=== PATIENT | male | born 1960 | race Two or more races ===

== ENCOUNTER 2025-01-01 16:29 | Inpatient (IN) | payer OTHER ==
[~2025-01-01] VITALS: Ht 172.7 cm; Wt 95.3 kg
[2025-01-01 17:13] LABS: BASOPHILS % (AUTO) 0.1 % (0.0-2.0); EOSINOPHILS # (AUTO) 1.7 K/uL (0.0-0.7); EOSINOPHILS % (AUTO) 10.7 % (0.0-7.0); HEMATOCRIT 28.1 % (36.7-47.1); HEMOGLOBIN 9.2 g/dL (12.5-16.3); LYMPHOCYTES # (AUTO) 3.3 K/uL (0.8-4.8); LYMPHOCYTES % (AUTO) 20.4 % (20.5-51.5); MEAN CORPUSCULAR HGB CONC 33 g/dL (32.5-36.3); MEAN CORPUSCULAR VOLUME 76.4 fL (73.0-96.2); MONOCYTES % (AUTO) 5.9 % (0.0-11.0); NEUTROPHILS # (AUTO) 10.3 K/uL (1.8-8.9); NEUTROPHILS % (AUTO) 62.9 % (38.5-71.5); PLATELET COUNT (AUTO) 722 K/uL (152-348); RED BLOOD CELL COUNT(AUTO) 3.68 MIL/uL (4.06-5.63); RED CELL DISTRIBUTION WIDTH 15.7 % (12.1-16.2); WHITE BLOOD COUNT (AUTO) 16.4 K/uL (3.6-10.2)
[2025-01-01 17:21] LABS: DIFFERENTIAL COMMENT 1
[2025-01-01 17:28] LABS: CALCIUM 8.2 mg/dL (8.5-10.1); CARBON DIOXIDE 25 mmol/L (21-32); CHLORIDE 100 mmol/L (98-107); CREATININE 1.2 mg/dL (0.6-1.3); GLUCOSE 315 mg/dL (74-106); SODIUM SERUM 134 mmol/L (136-145); UREA NITROGEN, BLOOD 40 mg/dL (7-18)
[2025-01-01] MEDS ORDERED: HYDR-3972 PO (17:32)
[2025-01-01] MEDS ORDERED: INSU100V39 SQ (17:32)
[2025-01-01] MEDS ORDERED: ATOR20TA PO (17:32)
[2025-01-01] MEDS ORDERED: ASCO500C18 PO (17:32)
[2025-01-01] MEDS ORDERED: ZINC220T4 PO (17:32)
[2025-01-01] MEDS ORDERED: INSU100I26 SQ (17:32)
[2025-01-01] MEDS ORDERED: MULT-225 PO (17:32)
[2025-01-01] MEDS ORDERED: TRIA15OI9 TP (17:32)
[2025-01-01] MEDS ORDERED: OMEP20CA15 PO (17:32)
[2025-01-01] MEDS ORDERED: DIPH25TA62 PO (17:32)
[2025-01-01 17:33] LABS: ALANINE AMINOTRANSFERASE 13 U/L (16-63); ALKALINE PHOSPHATASE 126 U/L (50-136); ASPARTATE AMINOTRANSFERASE 11 U/L (15-37); BILIRUBIN,DIRECT < 0.1 mg/dL (0.0-0.2); BILIRUBIN,TOTAL 0.1 mg/dL (0.2-1.0)
[2025-01-01] MEDS ORDERED: CEFTRIAXONE /D5W 50ML IVPB **ER PYXIS IV ONE (18:05)
[2025-01-01] MEDS ORDERED: VANCOMYCIN IV 200 ML ONE (18:05)
[2025-01-01] MEDS: IV NS 1000 ML 1,000 ML IV PRN (18:08)
[2025-01-01] MEDS: CEFTRIAXONE 1 G in IV DEXTROSE 5% 50 ML IV ONE (18:09)
[2025-01-01 18:12] LABS: NT-PRO BNP 155 pg/mL (0-125)
[2025-01-01] MEDS: VANCOMYCIN IV 1,000 MG in IV DEXTROSE 5% 250 ML IV ONE (18:47)
[2025-01-01] MEDS ORDERED: ONDANSETRON 4 MG/2 ML VIAL ONE (21:16)
[2025-01-01] MEDS ORDERED: MORPHINE SULFATE 2 MG/1 ML DISP.SYRIN ONE (21:16)
[2025-01-01] MEDS: ONDANSETRON 4 MG/2 ML VIAL IV ONE (21:22)
[2025-01-01] MEDS: MORPHINE SULFATE 2 MG/1 ML DISP.SYRIN IV ONE (21:22)
[2025-01-01 22:45] VITALS: BP 116/58; TEMP 98.9; O2SAT 99
[2025-01-02] MEDS ORDERED: ACETAMINOPHEN 325 MG TABLET PO PRN (00:15)
[2025-01-02] MEDS ORDERED: MAGNESIUM HYDROXIDE 30 ML LIQUID UDC PO PRN (00:15)
[2025-01-02] MEDS ORDERED: REMEDY ESSENTIAL ZINC PASTE 113 GM TP PRN (00:15)
[2025-01-02] MEDS: MORPHINE SULFATE 2 MG/1 ML DISP.SYRIN IV PRN (00:28)
[2025-01-02] MEDS ORDERED: VANCOMYCIN IV 200 ML ONE (00:45)
[2025-01-02] MEDS: ONDANSETRON 4 MG/2 ML VIAL IV PRN (01:23)
[2025-01-02] MEDS: HYDROMORPHONE 1 MG/1 ML DISP.SYRIN IV PRN ×2 (01:24→11:56)
[2025-01-02] MEDS: VANCOMYCIN IV 1,000 MG in IV DEXTROSE 5% 250 ML IV ONE (01:27)
[2025-01-02 06:15] VITALS: BP 117/53; TEMP 97.8; O2SAT 98
[2025-01-02 07:45] VITALS: BP 84/44; TEMP 97.9
[2025-01-02] MEDS ORDERED: INSULIN REGULAR, HUMAN 300 UNITS/3 ML VIAL SQ PRN (08:45)
[2025-01-02] MEDS ORDERED: DEXTROSE 50% 50 ML DISP.SYRIN IV PRN (08:45)
[2025-01-02 10:53] LABS: HIV-1 p24 ANTIGEN NON REACTIVE (NONREACTIVE); HIV-1/2 ANTIBODY NON REACTIVE (NONREACTIVE)
[2025-01-02] MEDS ORDERED: GABA-532 PO (10:58)
[2025-01-02] MEDS: BLOOD SUGAR DIAGNOSTIC 1 EACH STRIP VI SCH (11:43)
[2025-01-02] MEDS: INSULIN REGULAR, HUMAN 1000 UNIT/10 ML VIAL SQ PRN (11:46)
[2025-01-02 15:25] VITALS: BP 107/71; TEMP 98.1; O2SAT 98
[2025-01-02] MEDS: VANCOMYCIN HCL 1,500 MG in IV DEXTROSE 5% 500 ML IV SCH (17:15)
[2025-01-02] MEDS: IV NS 1000 ML 1,000 ML IV PRN (17:17)
[2025-01-02] MEDS: GLUCERNA SHAKE 237 ML CAN PO SCH (17:23)
[2025-01-02 21:31] VITALS: BP 130/64; TEMP 98.3; O2SAT 98
[2025-01-02] MEDS: diphenhydrAMINE 25 MG CAP PO PRN (23:04)
[2025-01-02] MEDS: methylPREDNISolone SOD SUCC 125 MG/2 ML VIAL IV ONE (23:04)
[2025-01-03 04:26] VITALS: BP 134/68; TEMP 97.8; O2SAT 97
[2025-01-03 07:13] LABS: EOSINOPHILS # (AUTO) 0.1 K/uL (0.0-0.7); EOSINOPHILS % (AUTO) 0.4 % (0.0-7.0); HEMOGLOBIN 8.7 g/dL (12.5-16.3); LYMPHOCYTES # (AUTO) 2.6 K/uL (0.8-4.8); LYMPHOCYTES % (AUTO) 17.5 % (20.5-51.5); MEAN CORPUSCULAR HEMOGLOBIN 25.1 uug (23.8-33.4); MEAN CORPUSCULAR HGB CONC 32 g/dL (32.5-36.3); MEAN CORPUSCULAR VOLUME 77.5 fL (73.0-96.2); MONOCYTES # (AUTO) 0.2 K/uL (0.1-1.30); MONOCYTES % (AUTO) 1.2 % (0.0-11.0); NEUTROPHILS # (AUTO) 11.9 K/uL (1.8-8.9); NEUTROPHILS % (AUTO) 80.9 % (38.5-71.5); PLATELET COUNT (AUTO) 768 K/uL (152-348); RED BLOOD CELL COUNT(AUTO) 3.48 MIL/uL (4.06-5.63); RED CELL DISTRIBUTION WIDTH 15.9 % (12.1-16.2); WHITE BLOOD COUNT (AUTO) 14.8 K/uL (3.6-10.2)
[2025-01-03 07:20] LABS: CALCIUM 8.3 mg/dL (8.5-10.1); CREATININE 0.9 mg/dL (0.6-1.3); PHOSPHOROUS 4.4 mg/dL (2.5-4.9); POTASSIUM 4.8 mmol/L (3.5-5.1)
[2025-01-03 07:22] LABS: DIFFERENTIAL COMMENT 1
[2025-01-03 08:10] VITALS: BP 132/66; TEMP 97.6; O2SAT 99
[2025-01-03] MEDS: LORATADINE 10 MG TABLET PO SCH (08:47)
[2025-01-03] MEDS: predniSONE 20 MG TABLET PO SCH (08:47)
[2025-01-03] MEDS: PROTEIN SUPPLEMENT (PROSTAT) 30 ML LIQUID PO SCH (08:50)
[2025-01-03 11:02] VITALS: BP 134/55; TEMP 98.7; O2SAT 95
[2025-01-03] MEDS: TRIAMCINOLONE ACET 0.1% CREAM 15 GM TUBE TOP SCH (12:13)
[2025-01-03 14:38] LABS: *SODIUM RNDM,URINE 44 mmol/L (40-220)
[2025-01-03 16:06] VITALS: BP 130/67; TEMP 97.9; O2SAT 98
[2025-01-03 19:46] VITALS: BP 140/75; TEMP 97.7; O2SAT 98
[2025-01-03] MEDS: VANCOMYCIN HCL 1,500 MG in IV DEXTROSE 5% 500 ML IV SCH (21:08)
[2025-01-04 05:35] VITALS: BP 110/52; TEMP 97.8; O2SAT 99
[2025-01-04 07:39] VITALS: BP 131/64; TEMP 97.2; O2SAT 99
[2025-01-04 07:56] LABS: BASOPHILS % (AUTO) 0.2 % (0.0-2.0); HEMATOCRIT 23.5 % (36.7-47.1); HEMOGLOBIN 7.8 g/dL (12.5-16.3); LYMPHOCYTES # (AUTO) 3.3 K/uL (0.8-4.8); LYMPHOCYTES % (AUTO) 16.5 % (20.5-51.5); MEAN CORPUSCULAR HEMOGLOBIN 25.6 uug (23.8-33.4); MEAN CORPUSCULAR HGB CONC 33 g/dL (32.5-36.3); MEAN CORPUSCULAR VOLUME 76.6 fL (73.0-96.2); NEUTROPHILS # (AUTO) 15.8 K/uL (1.8-8.9); NEUTROPHILS % (AUTO) 78.3 % (38.5-71.5); PLATELET COUNT (AUTO) 690 K/uL (152-348); RED BLOOD CELL COUNT(AUTO) 3.06 MIL/uL (4.06-5.63); RED CELL DISTRIBUTION WIDTH 15.9 % (12.1-16.2); WHITE BLOOD COUNT (AUTO) 20.2 K/uL (3.6-10.2)
[2025-01-04 08:06] LABS: DIFFERENTIAL COMMENT 1
[2025-01-04 08:18] LABS: CREATININE 0.9 mg/dL (0.6-1.3); MAGNESIUM 1.9 mg/dL (1.8-2.4); PHOSPHOROUS 3.4 mg/dL (2.5-4.9); POTASSIUM 4.2 mmol/L (3.5-5.1); URIC ACID 4.7 mg/dL (3.5-7.2)
[2025-01-04] MEDS ORDERED: SULF1TAB48 PO (08:39)
[2025-01-04] MEDS ORDERED: PRED20TA PO (08:39)
[2025-01-04 08:41] LABS: THYROID STIMULATING HORMONE 0.523 mIU/mL (0.358-3.740)
[2025-01-04 10:07] LABS: BAND % (MANUAL) 2 % (0-10); EOSINOPHILS % (MANUAL) 1 % (0-8); LYMPHOCYTES % (MANUAL) 14 % (20-40); MONOCYTES % (MANUAL) 7 % (2-10); MYELOCYTES % 1 % (0-0); NEUTROPHILS % (MANUAL) 75 % (42-75)
[2025-01-04 10:08] LABS: ANISOCYTOSIS 1+; HYPOCHROMASIA 1+; PLATELET ESTIMATE INCREASED
[2025-01-04 12:00] VITALS: BP 127/88; TEMP 97.2; O2SAT 99
== END 2025-01-04 13:30 | DRG 381 ==
LOC: ER 16:29 → MEDSURG3 23:00
PROVIDERS: ADMIT Internal Medicine; ATTEND Internal Medicine
DX: L12.0 Bullous pemphigoid (principal); D72.10 Eosinophilia, unspecified; E44.0 Moderate protein-calorie malnutrition; E11.42 Type 2 diabetes mellitus with diabetic polyneuropathy; E88.09 Other disorders of plasma-protein metabolism, not elsewhere classified; E87.1 Hypo-osmolality and hyponatremia; A49.01 Methicillin susceptible Staphylococcus aureus infection, unspecified site; L30.9 Dermatitis, unspecified; Z85.828 Personal history of other malignant neoplasm of skin; K21.9 Gastro-esophageal reflux disease without esophagitis; D64.9 Anemia, unspecified; E78.5 Hyperlipidemia, unspecified; Z79.4 Long term (current) use of insulin; Z85.49 Personal history of malignant neoplasm of other male genital organs; Z87.81 Personal history of (healed) traumatic fracture; R79.89 Other specified abnormal findings of blood chemistry; Z79.899 Other long term (current) drug therapy; Z87.440 Personal history of urinary (tract) infections
CPT/HCPCS: 36415; 71045; 83605; 83735; 84100; 84300; 84443; 84484; 84550; 85025; 85730; 86592; 87040; 87806; A6209; A6213; G0378; J0696; J1171; J1815; J2270; J2405; J2919; J3370; J3371; J7040; J7050; J7060; J7512; Q0163